=== PATIENT | male | born 1995 | race American Indian/Alaskan Native ===

== ENCOUNTER 2016-11-17 12:49 | Outpatient (CLI) | payer MEDICAID ==
--- NOTE | 2016-11-17 14:25 | XRay Report ---
ROUTINE CHEST, TWO VIEWS: HISTORY: Shortness of breath. The trachea, heart, mediastinal contour, lung peters and bony thorax are unremarkable. IMPRESSION: Unremarkable chest x-ray.
== END 2016-11-17 12:50 | disposition home or self-care (01) ==
LOC: XRAY 12:49
DX: R06.02 Shortness of breath (principal)
CPT/HCPCS: 71020